=== PATIENT | female | born 1985 | race Caucasian/White ===

== ENCOUNTER 2025-11-01 16:13 | Emergency (ER) | payer BC, SELFPAY ==
[2025-11-01 16:44] VITALS: BP 102/68
--- NOTE | 2025-11-01 19:03 | ED.GENMED ---
History of Present Illness
General
Chief Complaint: Abdominal Symptoms
Source: patient
Exam Limitations: none
Time Seen by Provider: 11/01/25 18:54
Nursing documentation reviewed up to this point in time: agreed with
History of Present Illness
History of Present Illness:
Patient to the emergency department with complaint of severe nausea, anorexia, severe anxiety. She has a history of depression and is maintained on Zoloft and Effexor. She uses THC daily. States that approximately 1 week ago she was sick with a
GI virus. Since then she has had the severe nausea, anorexia, and severe anxiety. Her psychiatrist placed her back on Xanax. She is taking 1 mg every 4 hours as needed but she states that this is not helping her anxiety. She is very tearful.
She denies wanting to hurt herself or others. She denies any abdominal pain. She denies fever or chills. She is brought to the emergency department by her spouse for evaluation.
Past History
Past History
ED Past Medical History: Psychiatric (Anxiety and depression)
Review of Systems
Review of Systems
Allergies reviewed?: Yes
All Other Systems: ROS reviewed and negative except as documented in HPI and ROS
Constitutional: Reports no symptoms
EENT: Reports no symptoms
Respiratory: Reports no symptoms
Cardiac: Reports no symptoms
ABD/GI: Reports nausea and anorexia
: Reports no symptoms
Musculoskeletal: Reports no symptoms
Skin: Reports no symptoms
Neurological: Reports no symptoms
Psychiatric: Reports depression and anxiety
Phy Exam
General Physical Exam
General Presentation: moderate distress
General age: appears stated age
General Skin: warm and dry
General Habitus: normal
General Mental: alert
Cardiovascular Exam
Cardiovascular Exam: regular rate/rhythm
Gastrointestinal Exam
Gastrointestinal Exam: non tender, soft, no organomegaly, no pulsatile mass and non distended
Musculoskeletal Exam
Musculoskeletal Exam: full ROM and neuro vasc intact
Skin Exam
Skin Exam: normal color, warm/dry and no rash
Psychiatric Exam
Psychiatric Exam: normal mood/affect
Course
Orders/Labs/Results
Orders:
Orders
11/01/25 16:49
Test Result ONCE
11/01/25 19:00
0.9% Sodium Chloride 500 ml [Nss] 500 ml IV BOLUS
Lorazepam [Ativan] 1 mg IV NOW STA
11/01/25 19:02
Ondansetron Injectable [Zofran] 4 mg IV NOW STA
11/01/25 19:28
Complete Blood Count/With Diff Urgent
Comprehensive Metabolic Panel Urgent
HCG, Serum Qualitative Screen Urgent
Lipase Urgent
TSH Reflex To Free T4 Urgent
11/01/25 20:14
Urinalysis Reflex To Culture Urgent
Date Specimen was Collected: 11/01/25
Time Specimen was Collected: 20:10
Urine Microscopic Reflex Cult Urgent
Urine Culture Urgent
NATASHA Source: U
Specimen Description:
Date Specimen was Collected: 11/01/25
Time Specimen was Collected: 20:10
11/01/25 20:21
Crisis Consult Urgent
Reason for Consult: severe anxiety/depression
11/01/25 20:34
0.9% Sodium Chloride 1000 ml [Nss] 1,000 ml IV BOLUS
11/01/25 22:33
Lorazepam [Ativan] 0.5 mg PO NOW STA
11/01/25 22:34
Ondansetron Orally Disint [Zofran Odt (Orally Disintegrating)] 4 mg PO NOW STA
Abnormal Lab Results
11/01/25 11/01/25
19:28 20:14
MCV 77.5 L fL
(81.0-99.0)
MPV 10.8 H fL
(7.4-10.4)
Urine Ketones 3+ A
(Negative)
Urine Urobilinogen 2+ A
(Neg - 1+)
Leukocyte Esterase Rfl 1+ A
(Negative)
Urine Bacteria (Reflex) Few A
(Negative)
Urine Albumin (Reflex) 2+ A
(Neg - Trace)
11/01/25 19:28
11/01/25 19:28
Vital Signs
Initial and Last Documented VS:
Initial Vital Signs
Temp Pulse Resp BP Pulse Ox
98.6 F 117 20 102/68 97
11/01/25 16:44 11/01/25 16:44 11/01/25 16:44 11/01/25 16:44 11/01/25 16:44
Last Documented Vital Signs
Temp Pulse Resp BP Pulse Ox
98.6 F 64 16 103/65 99
11/01/25 16:44 11/01/25 21:24 11/01/25 21:24 11/01/25 21:24 11/01/25 21:24
*Pulse Oximetry
SaO2: 97
Oxygen Mode of Delivery: Room air
Patient hypoxic: no
*Critical Care Note
Total Time (30-74mins, 75-104mins- exclusive of procedures): Not Applicable
Update Note
Update Note:
Patient to the emergency department with complaint of severe anxiety and depression. She states she has been maintained on Effexor and Zoloft for many years. She has been using THC intermittently for exacerbation of her symptoms but has found that
this has not been helpful recently. Her provider gave her a prescription for Xanax. She states this has not been helpful either. brought to the emergency department by her spouse for evaluation. She denies any SI, HI. Crisis was consulted and
evaluation was completed. Patient and spouse were given resources for intense outpatient therapy. Spouse states that he was able to call for an appointment while here in the ED. Patient has her first virtual appointment tomorrow afternoon. She
was given IV Ativan and IV Zofran in ED and responded well to these medications. She is tolerating p.o. fluids. Will provide a short course of Ativan for this weekend. She will not be taking the Xanax, and has agreed that she will not be
taking this medication. Patient and spouse were given instructions on signs and symptoms to return to the emergency department and they are agreeable to this plan.
ED Attending Note
-
Portions of this chart may have been created with voice recognition software.� Occasional wrong word or��sound alike� substitutions may have occurred due to the inherent limitations of voice recognition software.
Discharge Plan
Departure
Patient Disposition: Home (Routine Discharge)
Date of Disposition: 11/01/25
Time of Disposition: 22:28
Patient with high blood pressure during this ER visit?: No
Condition: Good
Covid-19: Not Applicable
Discharge Problem:
Anxiety, Depression
Prescriptions:
New
lorazepam [Ativan] 1 mg tablet
1 mg PO TID PRN (Reason: anxiety) Qty: 6 0RF
ondansetron 4 mg tablet,disintegrating
4 mg PO Q8H PRN (Reason: nausea and vomiting) 4 Days Qty: 12 0RF
Referrals:
Genaro Chavez PA [Family Provider, General] - Tomorrow
Activity Restrictions/Additional Instructions:
Follow-up with a therapist tomorrow as scheduled. Return to the emergency department for any changes in/worsening of your symptoms.
Interventions
Interventions:
*Risk Screen - Suicide Last Done: 11/01/25 16:44
*General Assessment Last Done: 11/01/25 16:44
*Neglect/Abuse Screening Last Done: 11/01/25 16:44
*ED COVID-19 Vaccine History Last Done: 11/01/25 19:36
*ED Influenza Vaccine History Last Done: 11/01/25 19:36
[facility] Risk Assessment Tool Last Done: 11/01/25 19:36
*Nursing Disposition Last Done: 11/01/25 22:46
MT-[id number]-Sleywugs[facility] Assessment Last Done: 11/01/25 19:36
Discharge Date and Time
Discharge Date/Time: 11/01/25 22:56
Print Language: ALBANIAN
[2025-11-01] MEDS: ATIVAN 1 MG IV (19:28)
[2025-11-01] MEDS: ZOFRAN 4 MG IV (19:28)
[2025-11-01] MEDS: NSS 500 IV (19:28)
[2025-11-01 19:37] LABS: Hematocrit 41.7 % (37.0-47.0); Hemoglobin 14.5 g/dL (12.0-16.0); Mean Corp Hgb Conc. 34.8 g/dL (33.0-37.0); Mean Corpuscular Volume 77.5 fL (81.0-99.0); Nucleated Red Blood Cells % 0 %; Platelet Count 274 10^3/uL (130-400); Red Cell Dist. Width 12.8 % (11.5-14.5)
[2025-11-01 19:47] LABS: HCG, Serum Qualitative Screen Negative
[2025-11-01 19:50] LABS: ALT (SGPT) 12 U/L (0-35); AST (SGOT) 17 U/L (14-36); Albumin 4.3 g/dl (3.5-5.0); Alkaline Phosphatase 52 U/L (38-126); Blood Urea Nitrogen 9 mg/dl (7-17); Calcium 9.5 mg/dl (8.4-10.2); Carbon Dioxide 26 mmol/L (22-30); Chloride 104 mmol/L (98-107); Glucose 91 mg/dl (70-99); Lipase 80 U/L (23-300); Potassium 3.5 mmol/L (3.5-5.1); Sodium 136 mmol/L (135-145); Total Protein 7.0 g/dl (6.3-8.2); eGFR > 60.00
[2025-11-01 20:23] LABS: Urine Character Clear (Clear)
[2025-11-01 20:29] VITALS: BP 99/53
[2025-11-01 20:32] LABS: Urine Red Blood Cell 0-2 /HPF (0-2); Urine Squamous Cell >30 /LPF (Few)
[2025-11-01] MEDS: NSS 1000 IV (21:21)
[2025-11-01 21:24] VITALS: BP 103/65
[2025-11-01] MEDS: ZOFRAN ODT (ORALLY DISINTEGRATING) 4 MG PO (22:41)
[2025-11-01] MEDS: ATIVAN 0.5 MG PO (22:41)
== END 2025-11-01 22:56 | disposition home or self-care (01) ==
LOC: EMR 16:13
PROVIDERS: Emergency Medicine; Nurse Practitioner; EMERGENCY PHYSICIAN Student in an Organized Health Care Education/Training Program; FAMILY PHYSICIAN Physician Assistant
DX: F41.9 Anxiety disorder, unspecified (principal); F32.A Depression, unspecified; R63.0 Anorexia; R11.0 Nausea; F12.90 Cannabis use, unspecified, uncomplicated
CPT/HCPCS: 99283; 96374; 96375; 96361; 80053; 81003; 81015; 83690; 84443; 84703; 85025; 87086